=== PATIENT | male | born 1970 | race African-American/Black ===

== ENCOUNTER 2017-01-21 11:10 | Emergency (ER) | payer BC ==
[~2017-01-21] VITALS: Ht 188 cm; Wt 107.9 kg
[2017-01-21] MEDS ORDERED: LOSARTAN-HCTZ1 EACH PO (11:57)
[2017-01-21] MEDS ORDERED: HYZAAR 50-121 TABLET PO (11:59)
[2017-01-21 12:18] VITALS: BP 166/110
== END 2017-01-21 12:18 | disposition home or self-care (01) ==
LOC: EME 11:10
DX: I10 Essential (primary) hypertension (principal); Z72.0 Tobacco use
CPT/HCPCS: 99281; 99282

== ENCOUNTER 2017-02-22 14:33 | Emergency (ER) | payer SELFPAY ==
[~2017-02-22] VITALS: Ht 188 cm; Wt 109.9 kg
[~2017-02-22 14:33] MED LIST: HYZAAR 50-121 TABLET PO; LOSARTAN-HCTZ1 EACH PO
[2017-02-22] MEDS ORDERED: INDOCIN50 MG PO (18:19)
[2017-02-22] MEDS ORDERED: VALIUM5 MG PO (18:19)
[2017-02-22] MEDS ORDERED: NORCO 7.5/321 TABLET PO (18:19)
[2017-02-22 18:49] VITALS: BP 173/86
== END 2017-02-22 18:52 | disposition home or self-care (01) ==
LOC: EME 14:33
DX: S16.1XXA Strain of muscle, fascia and tendon at neck level, initial encounter (principal); S46.912A Strain of unspecified muscle, fascia and tendon at shoulder and upper arm level, left arm, initial encounter; X58.XXXA Exposure to other specified factors, initial encounter; Y99.0 Civilian activity done for income or pay
CPT/HCPCS: 99281; 99283

== ENCOUNTER 2017-06-22 15:05 | Inpatient (IN) | payer BC ==
[~2017-06-22] VITALS: Ht 188 cm; Wt 124.4 kg
[~2017-06-22 15:05] MED LIST changes: +INDOCIN50 MG PO; +NORCO 7.5/321 TABLET PO; +VALIUM5 MG PO
[2017-06-22 16:16] LABS: HEMATOCRIT 43.1 % (38.0-50.0); HEMOGLOBIN 15.4 G/DL (12.5-16.6); MCH 31.5 PG (29.0-34.0); MCHC 35.7 G/DL (30.0-36.0); MCV 88.1 FL (86-99); NRBC (%) 2.2 /100 WBC (0-0); RBC DIS.WIDTH-SD 41.6 % (39-53); RED BLOOD COUNT 4.89 M/uL (4.00-5.50); WHITE BLOOD COUNT 15.4 K/uL (4.1-10.2)
[2017-06-22 16:24] LABS: ALBUMIN 4.2 g/dL (3.2-4.8); CHLORIDE 102 mEq/L (99-109); POTASSIUM 3.8 mEq/L (3.7-5.4); SODIUM 137 mEq/L (136-147)
[2017-06-22 16:27] LABS: GLUCOSE 92 mg/dL (70-99)
[2017-06-22 16:28] LABS: TOTAL BILIRUBIN 1.3 mg/dL (0.0-1.0)
[2017-06-22 16:30] LABS: ALKALINE PHOSPHATASE 300 IU/L (3-129); CREATININE 1.8 mg/dL (0.6-1.3); GFR ESTIMATE (CALCULATED) 53 mL/min/ (58.99-99999)
[2017-06-22 16:31] LABS: UREA NITROGEN (BUN) 24 mg/dL (9-23)
[2017-06-22 16:32] LABS: AST (GOT) 109 IU/L (2-34)
[2017-06-22 16:33] LABS: ALT (GPT) 114 IU/L (3-49)
[2017-06-22 17:15] LABS: HEMATOLOGY COMMENT 1 SN; PLAT.SUFFICIENCY DECREASED
[2017-06-22 17:17] LABS: IMM.PLATELET FRACTION 12.9 (1-7); PLATELET COUNT 19 K/uL (156-360)
[2017-06-22 18:04] LABS: INTER. NORMALIZED RATIO 1.2
[2017-06-22 18:07] LABS: PTT 26.8 SEC (25-37)
[2017-06-22] MEDS ORDERED: DICLOFENAC SODI75 MG PO (19:29)
[2017-06-22] MEDS ORDERED: STRIBILD TABLE1 EACH PO (19:29)
[2017-06-22] MEDS ORDERED: ONE DAILY1 EAC3 PO (19:29)
[2017-06-22 21:00] LABS: HEMOGLOBIN 13.6 G/DL (12.5-16.6); INTER. NORMALIZED RATIO 1.3; MCH 31.5 PG (29.0-34.0); MCHC 35.8 G/DL (30.0-36.0); NRBC (%) 2.6 /100 WBC (0-0); RBC DIS.WIDTH-CV 12.9 % (11.8-14.6); RBC DIS.WIDTH-SD 41.1 % (39-53); RED BLOOD COUNT 4.32 M/uL (4.00-5.50); WHITE BLOOD COUNT 14.5 K/uL (4.1-10.2)
[2017-06-22 21:51] LABS: ABS NEUTROPHIL COUNT 10.6; ANISOCYTOSIS 2+; ATYPICAL LYMPHOCYTE 5.3 %; BAND NEUTROPHILS 18.4 % (0-8.0); EOSINOPHIL ABS CT 0.9; EOSINOPHILS 6.1 % (0-5.0); HEMATOLOGY COMMENT 1 SN; IMM.PLATELET FRACTION 14.2 (1-7); LYMPHOCYTES 4.4 % (15.0-45.0); METAMYELOCYTES 3.5 %; MICROCYTOSIS 1+; MONOCYTES 5.3 % (0-9.0); MYELOCYTES 2.6 %; NUCLEATED RBC'S 2.6; PLAT.SUFFICIENCY DECREASED; POLYCHROMASIA 1+; SEG.NEUTROPHILS 54.4 % (46.0-76.0)
[2017-06-22 21:52] LABS: PLATELET COUNT 17 K/uL (156-360)
[2017-06-23] VITALS (9 sets, daily range): BP systolic 134–167; BP diastolic 78–102
[2017-06-23 00:56] LABS: APPEARANCE SL.HAZY ((CLEAR)); BILIRUBIN NEGATIVE; BLOOD NEGATIVE; COLOR YELLOW ((YELLOW)); GLUCOSE (STRIP) NEGATIVE; KETONES 5; LEUKOCYTES NEGATIVE; NITRITE NEGATIVE; PROTEIN (STRIP) 30
[2017-06-23 01:18] LABS: BACTERIA RARE /HPF; EPITHELIAL CELLS RARE /HPF; MUCUS TRACE /LPF; RED BLOOD CELLS 0-5 /HPF (0-5); UCUL ADDED? NO; WHITE BLOOD CELLS 0-5 /HPF (0-5)
[2017-06-23 08:55] LABS: HEMATOCRIT 35.6 % (38.0-50.0); HEMOGLOBIN 12.2 G/DL (12.5-16.6); MCH 31.1 PG (29.0-34.0); MCHC 34.3 G/DL (30.0-36.0); MCV 90.8 FL (86-99); NRBC (%) 2.2 /100 WBC (0-0); RBC DIS.WIDTH-CV 13.3 % (11.8-14.6); RBC DIS.WIDTH-SD 44.2 % (39-53); RED BLOOD COUNT 3.92 M/uL (4.00-5.50); WHITE BLOOD COUNT 12.5 K/uL (4.1-10.2)
[2017-06-23 09:41] LABS: IMM.PLATELET FRACTION 11.6 (1-7); PLAT.SUFFICIENCY VERY DECREASED
[2017-06-23 09:44] LABS: PLATELET COUNT 14 K/uL (156-360)
[2017-06-23 11:36] LABS: CHLORIDE 104 MEQ/L (99-109); GLUCOSE 91 mg/dL (70-99); LACTATE DEHYDROGENASE 3124 IU/L (20-246); POTASSIUM 3.6 MEQ/L (3.7-5.4); SODIUM 138 MEQ/L (136-147); UREA NITROGEN (BUN) 18 mg/dL (9-23)
[2017-06-23 11:50] LABS: CREATININE 1.3 MG/DL (0.6-1.3); GFR ESTIMATE (CALCULATED) > 59 mL/min/ (58.99-99999)
[2017-06-23 13:39] LABS: D-DIMER LATEX POSITIVE
[2017-06-23 13:48] LABS: FIBRINOGEN 463 mg/dL (150-450)
[2017-06-23 13:49] LABS: TROP-I INTERPRETATION NEGATIVE; TROPONIN-I 0.02 ng/mL (0.0-0.30)
[2017-06-23 13:58] LABS: SCHISTOCYTES NONE SEEN
[2017-06-23 14:20] LABS: FOLIC ACID (FOLATE) 7.9 NG/ML (5.0-22.0)
[2017-06-23 19:10] LABS: TROP-I INTERPRETATION NEGATIVE; TROPONIN-I 0.01 ng/mL (0.0-0.30)
[2017-06-24] VITALS (10 sets, daily range): BP systolic 130–158; BP diastolic 75–97
[2017-06-24 01:20] LABS: TROP-I INTERPRETATION NEGATIVE; TROPONIN-I < 0.01 ng/mL (0.0-0.30)
[2017-06-24 08:42] LABS: HEMATOCRIT 35.8 % (38.0-50.0); HEMOGLOBIN 12.5 G/DL (12.5-16.6); MCHC 34.9 G/DL (30.0-36.0); MCV 88.8 FL (86-99); NRBC (%) 2.5 /100 WBC (0-0); RBC DIS.WIDTH-SD 41.9 % (39-53); RED BLOOD COUNT 4.03 M/uL (4.00-5.50)
[2017-06-24 09:07] LABS: CHLORIDE 98 MEQ/L (99-109); CREATININE 1.2 MG/DL (0.6-1.3); GFR ESTIMATE (CALCULATED) > 59 mL/min/ (58.99-99999); GLUCOSE 128 mg/dL (70-99); SODIUM 135 MEQ/L (136-147); UREA NITROGEN (BUN) 14 mg/dL (9-23)
[2017-06-24 09:18] LABS: IMM.PLATELET FRACTION 4.3 (1-7); PLAT.SUFFICIENCY DECREASED; PLATELET COUNT 38 K/uL (156-360)
[2017-06-24 12:46] LABS: HEPATITIS B SURFACE ANTIGEN Nonreactive
[2017-06-24 12:47] LABS: ANTI-HEPATITIS A VIRUS (IGM) Nonreactive; HEPATITIS C ANTIBODY Nonreactive
[2017-06-24 12:48] LABS: ANTI-HEPATITIS B CORE (IGM) Nonreactive
[2017-06-25 08:37] VITALS: BP 149/92
[2017-06-25 09:55] LABS: HEMATOCRIT 33.5 % (38.0-50.0); HEMOGLOBIN 11.8 G/DL (12.5-16.6); MCH 31.1 PG (29.0-34.0); MCHC 35.2 G/DL (30.0-36.0); MCV 88.2 FL (86-99); NRBC (%) 7.2 /100 WBC (0-0); RBC DIS.WIDTH-SD 41.6 % (39-53); WHITE BLOOD COUNT 10.4 K/uL (4.1-10.2)
[2017-06-25 10:21] LABS: IMM.PLATELET FRACTION 4.5 (1-7); PLAT.SUFFICIENCY DECREASED
[2017-06-25 10:30] LABS: PLATELET COUNT 38 K/uL (156-360)
[2017-06-25 11:09] LABS: CHLORIDE 104 MEQ/L (99-109); CREATININE 1.2 MG/DL (0.6-1.3); GFR ESTIMATE (CALCULATED) > 59 mL/min/ (58.99-99999); GLUCOSE 124 mg/dL (70-99); POTASSIUM 3.6 MEQ/L (3.7-5.4); SODIUM 140 MEQ/L (136-147)
[2017-06-25 11:10] LABS: UREA NITROGEN (BUN) 29 mg/dL (9-23)
[2017-06-25 16:01] VITALS: BP 149/93
[2017-06-25 23:49] VITALS: BP 144/97
[2017-06-26 04:07] LABS: LD-1/LD-2 RATIO 0.2 (())
[2017-06-26 06:50] VITALS: BP 149/102
[2017-06-26 07:07] LABS: HEMATOCRIT 31.5 % (38.0-50.0); MCH 31.5 PG (29.0-34.0); MCHC 34.9 G/DL (30.0-36.0); MCV 90.3 FL (86-99); NRBC (%) 8.9 /100 WBC (0-0); RBC DIS.WIDTH-CV 13.7 % (11.8-14.6); RBC DIS.WIDTH-SD 45.2 % (39-53); RED BLOOD COUNT 3.49 M/uL (4.00-5.50); WHITE BLOOD COUNT 10.5 K/uL (4.1-10.2)
[2017-06-26 07:27] LABS: IMM.PLATELET FRACTION 5.2 (1-7); PLAT.SUFFICIENCY VERY DECREASED
[2017-06-26 07:29] LABS: PLATELET COUNT 29 K/uL (156-360)
[2017-06-26 08:28] VITALS: BP 156/91
[2017-06-26 15:22] VITALS: BP 138/97
[2017-06-26 23:55] VITALS: BP 155/95
[2017-06-27 06:40] LABS: HEMATOCRIT 33.1 % (38.0-50.0); HEMOGLOBIN 11.6 G/DL (12.5-16.6); MCH 31.9 PG (29.0-34.0); MCV 90.9 FL (86-99); NRBC (%) 9.2 /100 WBC (0-0); RBC DIS.WIDTH-CV 13.6 % (11.8-14.6); RBC DIS.WIDTH-SD 45.3 % (39-53); RED BLOOD COUNT 3.64 M/uL (4.00-5.50); WHITE BLOOD COUNT 13.1 K/uL (4.1-10.2)
[2017-06-27 07:10] LABS: CHLORIDE 103 MEQ/L (99-109); CREATININE 1.1 MG/DL (0.6-1.3); GFR ESTIMATE (CALCULATED) > 59 mL/min/ (58.99-99999); POTASSIUM 4.1 MEQ/L (3.7-5.4); SODIUM 139 MEQ/L (136-147); UREA NITROGEN (BUN) 18 mg/dL (9-23)
[2017-06-27 07:15] LABS: GLUCOSE 56 mg/dL (70-99)
[2017-06-27 07:54] VITALS: BP 144/85
[2017-06-27 07:59] LABS: HEMATOLOGY COMMENT 1 SN; IMM.PLATELET FRACTION 9.1 (1-7); PLAT.SUFFICIENCY VERY DECREASED
[2017-06-27 08:03] LABS: PLATELET COUNT 25 K/uL (156-360)
[2017-06-27 13:06] LABS: ALBUMIN 3.3 G/DL (3.2-4.8); AST (GOT) 106 IU/L (2-34)
[2017-06-27 13:07] LABS: ALKALINE PHOSPHATASE 402 IU/L (3-129); ALT (GPT) 204 IU/L (3-49); TOTAL BILIRUBIN 3.2 MG/DL (0.0-1.0)
[2017-06-27 23:34] VITALS: BP 163/93
[2017-06-28] VITALS (7 sets, daily range): BP systolic 121–163; BP diastolic 72–92
[2017-06-28 06:45] LABS: HEMATOCRIT 35.3 % (38.0-50.0); HEMOGLOBIN 11.9 G/DL (12.5-16.6); MCHC 33.7 G/DL (30.0-36.0); MCV 91.9 FL (86-99); NRBC (%) 15.8 /100 WBC (0-0); RED BLOOD COUNT 3.84 M/uL (4.00-5.50); WHITE BLOOD COUNT 19.3 K/uL (4.1-10.2)
[2017-06-28 07:25] LABS: ALBUMIN 3.5 G/DL (3.2-4.8); ALKALINE PHOSPHATASE 407 IU/L (3-129); ALT (GPT) 172 IU/L (3-49); AST (GOT) 92 IU/L (2-34); CHLORIDE 99 MEQ/L (99-109); CREATININE 1.2 MG/DL (0.6-1.3); GFR ESTIMATE (CALCULATED) > 59 mL/min/ (58.99-99999); GLUCOSE 69 mg/dL (70-99); POTASSIUM 4.1 MEQ/L (3.7-5.4); SODIUM 141 MEQ/L (136-147); TOTAL PROTEIN 6.2 G/DL (6.4-8.3); UREA NITROGEN (BUN) 19 mg/dL (9-23)
[2017-06-28 07:44] LABS: IMM.PLATELET FRACTION 11.3 (1-7); PLAT.SUFFICIENCY VERY DECREASED; PLATELET COUNT 31 K/uL (156-360)
[2017-06-28 11:43] LABS: Flow Clinical Information R/O LYMPHOMA (()); Flow Number of Markers 22 (()); Flow Spec Viability 98 % (()); Flow Specimen Type PERIPHERAL BLOOD (())
[2017-06-28 13:40] LABS: CD4/CD8 Ratio 0.22 (0.86-5.00)
[2017-06-29 00:40] VITALS: BP 159/85
[2017-06-29 06:43] VITALS: BP 155/81
[2017-06-29 07:07] LABS: HEMATOCRIT 33.3 % (38.0-50.0); HEMOGLOBIN 11.4 G/DL (12.5-16.6); MCH 31.3 PG (29.0-34.0); MCHC 34.2 G/DL (30.0-36.0); MCV 91.5 FL (86-99); NRBC (%) 8.8 /100 WBC (0-0); PLATELET COUNT 67 K/uL (156-360); RBC DIS.WIDTH-CV 14.3 % (11.8-14.6); RBC DIS.WIDTH-SD 48.2 % (39-53); RED BLOOD COUNT 3.64 M/uL (4.00-5.50); WHITE BLOOD COUNT 24.1 K/uL (4.1-10.2)
[2017-06-29 07:44] LABS: ALBUMIN 3.4 G/DL (3.2-4.8); ALKALINE PHOSPHATASE 446 IU/L (3-129); ALT (GPT) 138 IU/L (3-49); AST (GOT) 118 IU/L (2-34); CHLORIDE 100 MEQ/L (99-109); CREATININE 1.4 MG/DL (0.6-1.3); GFR ESTIMATE (CALCULATED) > 59 mL/min/ (58.99-99999); POTASSIUM 4.3 MEQ/L (3.7-5.4); SODIUM 138 MEQ/L (136-147); TOTAL PROTEIN 6.1 G/DL (6.4-8.3); UREA NITROGEN (BUN) 25 mg/dL (9-23)
[2017-06-29 07:45] LABS: GLUCOSE 120 mg/dL (70-99); TOTAL BILIRUBIN 6.6 MG/DL (0.0-1.0)
[2017-06-29 07:48] LABS: ABS NEUTROPHIL COUNT 12.9; ANISOCYTOSIS 1+; ATYPICAL LYMPHOCYTE 6.8 %; BAND NEUTROPHILS 17.7 % (0-8.0); BASOPH.STIPPLING 1+; EOSINOPHIL ABS CT 1.9; EOSINOPHILS 7.7 % (0-5.0); METAMYELOCYTES 2.7 %; MONOCYTES 9.1 % (0-9.0); PLAT.SUFFICIENCY DECREASED; POLYCHROMASIA 1+
[2017-06-29 09:51] LABS: TREPONEMA ANTIBODY NEGATIVE (NEGATIVE)
[2017-06-29 18:55] VITALS: BP 160/96
[2017-06-29 23:15] VITALS: BP 160/96; BP 164/97
[2017-06-30] VITALS (9 sets, daily range): BP systolic 135–165; BP diastolic 79–98
[2017-06-30 01:41] LABS: Specimen Type Urine (())
[2017-06-30 07:07] LABS: HEMOGLOBIN 10.4 G/DL (12.5-16.6); MCH 31.5 PG (29.0-34.0); MCHC 34.7 G/DL (30.0-36.0); MCV 90.9 FL (86-99); NRBC (%) 4.8 /100 WBC (0-0); RBC DIS.WIDTH-CV 14.5 % (11.8-14.6); RBC DIS.WIDTH-SD 47.4 % (39-53); WHITE BLOOD COUNT 15.4 K/uL (4.1-10.2)
[2017-06-30 07:30] LABS: ABS NEUTROPHIL COUNT 11.1; ANISOCYTOSIS 1+; BAND NEUTROPHILS 6.7 % (0-8.0); EOSINOPHIL ABS CT 0.1; EOSINOPHILS 0.9 % (0-5.0); IMM.PLATELET FRACTION 5.5 (1-7); LYMPHOCYTES 13.3 % (15.0-45.0); METAMYELOCYTES 4.8 %; MONOCYTES 5.7 % (0-9.0); MYELOCYTES 1.9 %; NUCLEATED RBC'S 12.4; PLAT.SUFFICIENCY DECREASED; SMUDGE CELLS 27.6
[2017-06-30 07:41] LABS: PLATELET COUNT 46 K/uL (156-360); SEG.NEUTROPHILS 65.7 % (46.0-76.0)
[2017-06-30 08:24] LABS: ALBUMIN 3.1 G/DL (3.2-4.8); ALKALINE PHOSPHATASE 412 IU/L (3-129); ALT (GPT) 103 IU/L (3-49); AST (GOT) 112 IU/L (2-34); CHLORIDE 101 MEQ/L (99-109); CREATININE 1.5 MG/DL (0.6-1.3); DIRECT BILIRUBIN 3.3 mg/dL (0.0-0.3); GAMMA-GT 210 IU/L (4-73); GFR ESTIMATE (CALCULATED) > 59 mL/min/ (58.99-99999); GLUCOSE 138 mg/dL (70-99); SODIUM 138 MEQ/L (136-147); TOTAL PROTEIN 6.1 G/DL (6.4-8.3)
[2017-06-30 08:26] LABS: TOTAL BILIRUBIN 4.8 MG/DL (0.0-1.0); UREA NITROGEN (BUN) 42 mg/dL (9-23)
[2017-06-30 11:53] LABS: APPEARANCE CLEAR ((CLEAR)); BILIRUBIN NEGATIVE; BLOOD SMALL; COLOR AMBER ((YELLOW)); GLUCOSE (STRIP) NEGATIVE; KETONES NEGATIVE; LEUKOCYTES NEGATIVE; NITRITE NEGATIVE; PROTEIN (STRIP) NEGATIVE; SPECIFIC GRAVITY 1.024 (1.000-1.030)
[2017-06-30 12:14] LABS: BACTERIA NONE SEEN /HPF; EPITHELIAL CELLS RARE /HPF; HYALINE CASTS 0-5 /LPF; MUCUS TRACE /LPF; RED BLOOD CELLS 0-5 /HPF (0-5); UCUL ADDED? NO; WHITE BLOOD CELLS 0-5 /HPF (0-5)
[2017-06-30 12:29] LABS: UR CREATININE CONCENTRATION 73.9 MG/DL
[2017-06-30 14:23] LABS: HEMATOCRIT 30.1 % (38.0-50.0); HEMOGLOBIN 10.4 G/DL (12.5-16.6); MCHC 34.6 G/DL (30.0-36.0); MCV 89.6 FL (86-99); NRBC (%) 4.5 /100 WBC (0-0); RBC DIS.WIDTH-CV 14.6 % (11.8-14.6); RED BLOOD COUNT 3.36 M/uL (4.00-5.50); WHITE BLOOD COUNT 14.7 K/uL (4.1-10.2)
[2017-06-30 14:33] LABS: PLATELET COUNT 106 K/uL (156-360)
[2017-06-30 17:49] LABS: UR CREATININE CONCENTRATION 74.8 MG/DL
[2017-07-01 00:10] VITALS: BP 131/79
[2017-07-01 06:35] LABS: HEMATOCRIT 29.1 % (38.0-50.0); MCH 31.3 PG (29.0-34.0); MCHC 34.4 G/DL (30.0-36.0); MCV 90.9 FL (86-99); NRBC (%) 5.1 /100 WBC (0-0); PLATELET COUNT 89 K/uL (156-360); RBC DIS.WIDTH-CV 14.8 % (11.8-14.6); RBC DIS.WIDTH-SD 49.4 % (39-53); WHITE BLOOD COUNT 11.1 K/uL (4.1-10.2)
[2017-07-01 06:39] LABS: C4 COMPLEMENT 45 MG/DL (10-40)
[2017-07-01 06:52] LABS: ALBUMIN 3.2 G/DL (3.2-4.8); ALKALINE PHOSPHATASE 447 IU/L (3-129); ALT (GPT) 102 IU/L (3-49); AST (GOT) 102 IU/L (2-34); CHLORIDE 106 MEQ/L (99-109); CREATININE 1.3 MG/DL (0.6-1.3); GFR ESTIMATE (CALCULATED) > 59 mL/min/ (58.99-99999); GLUCOSE 125 mg/dL (70-99); PHOSPHORUS 5.2 mg/dL (2.5-4.9); POTASSIUM 3.9 MEQ/L (3.7-5.4); SODIUM 141 MEQ/L (136-147); UREA NITROGEN (BUN) 48 mg/dL (9-23)
[2017-07-01 06:53] LABS: TOTAL BILIRUBIN 3.3 MG/DL (0.0-1.0)
[2017-07-01 07:13] LABS: ABS NEUTROPHIL COUNT 8.2; BAND NEUTROPHILS 3.9 % (0-8.0); EOSINOPHIL ABS CT 0.1; LYMPHOCYTES 18.4 % (15.0-45.0); METAMYELOCYTES 1.9 %; MYELOCYTES 3.9 %; NUCLEATED RBC'S 15.5; PLAT.SUFFICIENCY DECREASED; SEG.NEUTROPHILS 69.9 % (46.0-76.0); SMUDGE CELLS 17.5
[2017-07-01 08:00] VITALS: BP 145/86
[2017-07-01 09:01] LABS: TREPONEMA ANTIBODY NEGATIVE (NEGATIVE)
[2017-07-01 13:06] VITALS: BP 159/89
[2017-07-01 15:34] VITALS: BP 136/83
[2017-07-02 00:01] VITALS: BP 135/81
[2017-07-02 07:18] LABS: HEMATOCRIT 28.6 % (38.0-50.0); HEMOGLOBIN 9.7 G/DL (12.5-16.6); MCHC 33.9 G/DL (30.0-36.0); MCV 91.4 FL (86-99); NRBC (%) 6.2 /100 WBC (0-0); RBC DIS.WIDTH-CV 15.2 % (11.8-14.6); RED BLOOD COUNT 3.13 M/uL (4.00-5.50); WHITE BLOOD COUNT 9.3 K/uL (4.1-10.2)
[2017-07-02 07:27] LABS: ALBUMIN 3.2 G/DL (3.2-4.8); ALKALINE PHOSPHATASE 472 IU/L (3-129); ALT (GPT) 102 IU/L (3-49); AST (GOT) 96 IU/L (2-34); CHLORIDE 105 MEQ/L (99-109); CREATININE 1.1 MG/DL (0.6-1.3); GFR ESTIMATE (CALCULATED) > 59 mL/min/ (58.99-99999); GLUCOSE 114 mg/dL (70-99); POTASSIUM 4.1 MEQ/L (3.7-5.4); SODIUM 141 MEQ/L (136-147); TOTAL BILIRUBIN 3.1 MG/DL (0.0-1.0); TOTAL PROTEIN 5.9 G/DL (6.4-8.3); UREA NITROGEN (BUN) 40 mg/dL (9-23)
[2017-07-02 08:08] LABS: ABS NEUTROPHIL COUNT 6.2; BAND NEUTROPHILS 12.3 % (0-8.0); BASOPHILS 0.9 %; EOSINOPHIL ABS CT 0.1; METAMYELOCYTES 4.7 %; MONOCYTES 6.6 % (0-9.0); MYELOCYTES 2.8 %; NUCLEATED RBC'S 13.2; PLAT.SUFFICIENCY DECREASED; SEG.NEUTROPHILS 54.7 % (46.0-76.0); SMUDGE CELLS 21.7
[2017-07-02 08:10] LABS: PLATELET COUNT 54 K/uL (156-360)
[2017-07-02 08:28] VITALS: BP 138/81
[2017-07-02 11:44] LABS: Flow Number of Markers 22 (()); Flow Spec Viability 90 % (()); Flow Specimen Type LYMPH NODE (())
[2017-07-02 16:58] VITALS: BP 125/81
[2017-07-03 00:52] VITALS: BP 118/82
[2017-07-03 08:54] VITALS: BP 133/75
[2017-07-03 09:21] LABS: HEMATOCRIT 29.2 % (38.0-50.0); HEMOGLOBIN 9.8 G/DL (12.5-16.6); MCH 30.8 PG (29.0-34.0); MCHC 33.6 G/DL (30.0-36.0); MCV 91.8 FL (86-99); NRBC (%) 9.8 /100 WBC (0-0); RBC DIS.WIDTH-CV 15.3 % (11.8-14.6); RBC DIS.WIDTH-SD 51.4 % (39-53); RED BLOOD COUNT 3.18 M/uL (4.00-5.50); WHITE BLOOD COUNT 7.5 K/uL (4.1-10.2)
[2017-07-03 09:39] LABS: CHLORIDE 104 MEQ/L (99-109); POTASSIUM 4.4 MEQ/L (3.7-5.4); SODIUM 139 MEQ/L (136-147)
[2017-07-03 09:45] LABS: GFR ESTIMATE (CALCULATED) > 59 mL/min/ (58.99-99999); GLUCOSE 118 mg/dL (70-99); UREA NITROGEN (BUN) 35 mg/dL (9-23)
[2017-07-03 09:53] LABS: IMM.PLATELET FRACTION 5.7 (1-7); PLAT.SUFFICIENCY DECREASED; PLATELET COUNT 41 K/uL (156-360)
[2017-07-03 14:01] LABS: ALBUMIN 3.4 G/DL (3.2-4.8); ALKALINE PHOSPHATASE 470 IU/L (3-129); ALT (GPT) 124 IU/L (3-49); AST (GOT) 100 IU/L (2-34); DIRECT BILIRUBIN 1.9 mg/dL (0.0-0.3); TOTAL BILIRUBIN 3.4 MG/DL (0.0-1.0); TOTAL PROTEIN 6.1 G/DL (6.4-8.3)
[2017-07-03 17:01] VITALS: BP 130/60
[2017-07-03 21:15] VITALS: BP 139/77
[2017-07-04 08:42] VITALS: BP 149/76
[2017-07-04 10:08] LABS: HEMATOCRIT 28.1 % (38.0-50.0); HEMOGLOBIN 10.2 G/DL (12.5-16.6); MCH 33.3 PG (29.0-34.0); MCHC 36.3 G/DL (30.0-36.0); MCV 91.8 FL (86-99); NRBC (%) 12.5 /100 WBC (0-0); RBC DIS.WIDTH-CV 15.4 % (11.8-14.6); RBC DIS.WIDTH-SD 52.1 % (39-53); RED BLOOD COUNT 3.06 M/uL (4.00-5.50); WHITE BLOOD COUNT 6.3 K/uL (4.1-10.2)
[2017-07-04 10:27] LABS: ALBUMIN 3.2 G/DL (3.2-4.8); CHLORIDE 102 MEQ/L (99-109); POTASSIUM 4.2 MEQ/L (3.7-5.4); SODIUM 138 MEQ/L (136-147); TOTAL BILIRUBIN 3.9 MG/DL (0.0-1.0)
[2017-07-04 10:33] LABS: ALKALINE PHOSPHATASE 483 IU/L (3-129); ALT (GPT) 121 IU/L (3-49); AST (GOT) 82 IU/L (2-34); CREATININE 1.1 MG/DL (0.6-1.3); GFR ESTIMATE (CALCULATED) > 59 mL/min/ (58.99-99999); GLUCOSE 106 mg/dL (70-99); TOTAL PROTEIN 5.5 G/DL (6.4-8.3); UREA NITROGEN (BUN) 39 mg/dL (9-23)
[2017-07-04 10:46] LABS: ABS NEUTROPHIL COUNT 4.5; ANISOCYTOSIS 1+; ATYPICAL LYMPHOCYTE 7.1 %; BAND NEUTROPHILS 4.8 % (0-8.0); EOSINOPHIL ABS CT 0.1; EOSINOPHILS 1.2 % (0-5.0); IMM.PLATELET FRACTION 6.5 (1-7); LYMPHOCYTES 9.5 % (15.0-45.0); MACROCYTES 1+; METAMYELOCYTES 3.6 %; MONOCYTES 5.9 % (0-9.0); MYELOCYTES 1.2 %; NUCLEATED RBC'S 33.3; PLAT.SUFFICIENCY VERY DECREASED; PLATELET COUNT 33 K/uL (156-360); POLYCHROMASIA 1+; SEG.NEUTROPHILS 66.7 % (46.0-76.0)
[2017-07-04 15:13] VITALS: BP 158/91
[2017-07-04 23:32] VITALS: BP 135/73
[2017-07-05] VITALS (9 sets, daily range): BP systolic 137–163; BP diastolic 73–93
[2017-07-05 04:50] LABS: HEMATOCRIT 28.4 % (38.0-50.0); HEMOGLOBIN 10.2 G/DL (12.5-16.6); MCH 32.3 PG (29.0-34.0); MCHC 35.9 G/DL (30.0-36.0); MCV 89.9 FL (86-99); RBC DIS.WIDTH-CV 15.4 % (11.8-14.6); RBC DIS.WIDTH-SD 50.5 % (39-53); RED BLOOD COUNT 3.16 M/uL (4.00-5.50); WHITE BLOOD COUNT 6.7 K/uL (4.1-10.2)
[2017-07-05 04:55] LABS: CARBON DIOXIDE (BICARBONATE) 13.7 MEQ/L (20-31)
[2017-07-05 05:03] LABS: ALBUMIN 3.2 g/dL (3.2-4.8); CHLORIDE 105 mEq/L (99-109); POTASSIUM 4.6 mEq/L (3.7-5.4); SODIUM 138 mEq/L (136-147)
[2017-07-05 05:05] LABS: GLUCOSE 95 mg/dL (70-99)
[2017-07-05 05:06] LABS: TOTAL PROTEIN 6.1 g/dL (6.4-8.3)
[2017-07-05 05:07] LABS: TOTAL BILIRUBIN 4.3 mg/dL (0.0-1.0)
[2017-07-05 05:09] LABS: ALKALINE PHOSPHATASE 513 IU/L (3-129); GFR ESTIMATE (CALCULATED) > 59 mL/min/ (58.99-99999); PHOSPHORUS 3.9 mg/dL (2.5-4.9)
[2017-07-05 05:10] LABS: UREA NITROGEN (BUN) 35 mg/dL (9-23)
[2017-07-05 05:11] LABS: AST (GOT) 89 IU/L (2-34)
[2017-07-05 05:12] LABS: ALT (GPT) 139 IU/L (3-49)
[2017-07-05 06:57] LABS: ANISOCYTOSIS 1+; BAND NEUTROPHILS 11.5 % (0-8.0); EOSINOPHIL ABS CT 0.1; LYMPHOCYTES 11.5 % (15.0-45.0); METAMYELOCYTES 5.2 %; MONOCYTES 6.3 % (0-9.0); MYELOCYTES 15.6 %; NUCLEATED RBC'S 21.9; PLAT.SUFFICIENCY DECREASED; PLATELET COUNT 26 K/uL (156-360); SEG.NEUTROPHILS 48.9 % (46.0-76.0); SMUDGE CELLS 17.7
[2017-07-05 11:03] LABS: BASE EXCESS -8.8 mEq/L (-3 to +3); BICARBONATE 13.9 mEq/L (22-26); CARBOXY HGB 0.9 % (0-5); METHEMOGLOBIN 0.9 % (0-1.5); PCO2 22 mm Hg (35-45); PO2 69 mm Hg (80-100); pH 7.41 (7.35-7.45)
[2017-07-05 11:04] LABS: COMMENTS - BLOOD GASES A+C+; DEVICE HFNC; O2 FLOW 10 L/MIN; SITE RR; TOTAL RESP RATE 28 resp/min
[2017-07-06 03:52] VITALS: BP 144/83
[2017-07-06 05:01] LABS: CARBON DIOXIDE (BICARBONATE) 12.6 MEQ/L (20-31)
[2017-07-06 05:58] LABS: HEMATOCRIT 26.7 % (38.0-50.0); HEMOGLOBIN 8.9 G/DL (12.5-16.6); MCH 30.4 PG (29.0-34.0); MCHC 33.3 G/DL (30.0-36.0); MCV 91.1 FL (86-99); NRBC (%) 9.2 /100 WBC (0-0); RBC DIS.WIDTH-CV 15.8 % (11.8-14.6); RBC DIS.WIDTH-SD 53.3 % (39-53); RED BLOOD COUNT 2.93 M/uL (4.00-5.50); WHITE BLOOD COUNT 6.8 K/uL (4.1-10.2)
[2017-07-06 06:44] LABS: CHLORIDE 102 MEQ/L (99-109); CREATININE 1.1 MG/DL (0.6-1.3); GFR ESTIMATE (CALCULATED) > 59 mL/min/ (58.99-99999); GLUCOSE 78 mg/dL (70-99); POTASSIUM 4.6 MEQ/L (3.7-5.4); SODIUM 137 MEQ/L (136-147); UREA NITROGEN (BUN) 38 mg/dL (9-23)
[2017-07-06 06:47] LABS: ABS NEUTROPHIL COUNT 4.8; ANISOCYTOSIS 2+; EOSINOPHIL ABS CT 0.1; IMM.PLATELET FRACTION 5.5 (1-7); PLAT.SUFFICIENCY VERY DECREASED; POIKILOCYTOSIS 1+; POLYCHROMASIA 1+; TEAR DROP CELLS 2+
[2017-07-06 06:51] LABS: PLATELET COUNT 27 K/uL (156-360)
[2017-07-06 07:20] VITALS: BP 141/92
[2017-07-06 08:28] LABS: BICARBONATE 11.9 mEq/L (22-26); CARBOXY HGB 0.9 % (0-5); METHEMOGLOBIN 1.2 % (0-1.5); PCO2 21 mm Hg (35-45); PO2 54 mm Hg (80-100); SITE LR; pH 7.36 (7.35-7.45)
[2017-07-06 08:29] LABS: COMMENTS - BLOOD GASES A+C+; DEVICE HFNC; FI02 100 %; O2 FLOW 15 L/MIN; TOTAL RESP RATE 26 resp/min
[2017-07-06 12:20] VITALS: BP 122/69
[2017-07-06 14:52] LABS: CARBON DIOXIDE (BICARBONATE) 12.2 MEQ/L (20-31)
[2017-07-06 15:07] LABS: CHLORIDE 101 MEQ/L (99-109); CREATININE 1.2 MG/DL (0.6-1.3); GFR ESTIMATE (CALCULATED) > 59 mL/min/ (58.99-99999); GLUCOSE 79 mg/dL (70-99); POTASSIUM 5.2 MEQ/L (3.7-5.4); SODIUM 136 MEQ/L (136-147); UREA NITROGEN (BUN) 42 mg/dL (9-23)
[2017-07-06 15:13] VITALS: BP 127/61
[2017-07-06 19:20] VITALS: BP 136/89
[2017-07-07] VITALS (26 sets, daily range): BP systolic 104–180; BP diastolic 48–103
[2017-07-07 06:17] LABS: ALBUMIN 2.8 G/DL (3.2-4.8); ALT (GPT) 84 IU/L (3-49); AST (GOT) 71 IU/L (2-34); CHLORIDE 101 MEQ/L (99-109); CREATININE 1.5 MG/DL (0.6-1.3); GFR ESTIMATE (CALCULATED) > 59 mL/min/ (58.99-99999); PHOSPHORUS 4.2 mg/dL (2.5-4.9); POTASSIUM 4.9 MEQ/L (3.7-5.4); SODIUM 134 MEQ/L (136-147); TOTAL BILIRUBIN 4.3 MG/DL (0.0-1.0); TOTAL PROTEIN 5.1 G/DL (6.4-8.3); UREA NITROGEN (BUN) 45 mg/dL (9-23)
[2017-07-07 06:20] LABS: CARBON DIOXIDE (BICARBONATE) < 10.0 MEQ/L (20-31); GLUCOSE 105 mg/dL (70-99)
[2017-07-07 06:21] LABS: ALKALINE PHOSPHATASE 357 IU/L (3-129)
[2017-07-07 06:39] LABS: HEMATOCRIT 25.4 % (38.0-50.0); HEMOGLOBIN 8.5 G/DL (12.5-16.6); MCHC 33.5 G/DL (30.0-36.0); MCV 92.7 FL (86-99); NRBC (%) 7.2 /100 WBC (0-0); RBC DIS.WIDTH-CV 16.5 % (11.8-14.6); RBC DIS.WIDTH-SD 56.3 % (39-53); RED BLOOD COUNT 2.74 M/uL (4.00-5.50); WHITE BLOOD COUNT 9.3 K/uL (4.1-10.2)
[2017-07-07 07:10] LABS: ABS NEUTROPHIL COUNT 6.3; ANISOCYTOSIS 1+; BAND NEUTROPHILS 7.5 % (0-8.0); BASOPHILS 0.9 %; EOSINOPHIL ABS CT 0; LYMPHOCYTES 13.1 % (15.0-45.0); METAMYELOCYTES 7.5 %; MONOCYTES 1.9 % (0-9.0); MYELOCYTES 4.7 %; NUCLEATED RBC'S 18.7; OTHER 3.7; PLAT.SUFFICIENCY DECREASED; PLATELET COUNT 20 K/uL (156-360); SEG.NEUTROPHILS 60.7 % (46.0-76.0); SMUDGE CELLS 20.6
[2017-07-07 11:46] LABS: CARBOXY HGB 0.9 % (0-5); METHEMOGLOBIN 2.6 % (0-1.5); PCO2 < 19 mm Hg (35-45); PO2 86 mm Hg (80-100)
[2017-07-07 11:47] LABS: COMMENTS - BLOOD GASES A+C+; DEVICE HHFNC; O2 FLOW 30 L/MIN; SITE LR
[2017-07-07 11:48] LABS: FI02 100 %; TOTAL RESP RATE 33 resp/min
[2017-07-07 13:34] LABS: ALKALINE PHOSPHATASE 379 IU/L (3-129); ALT (GPT) 87 IU/L (3-49); AST (GOT) 94 IU/L (2-34); CHLORIDE 100 MEQ/L (99-109); CREATININE 1.8 MG/DL (0.6-1.3); GFR ESTIMATE (CALCULATED) 53 mL/min/ (58.99-99999); GLUCOSE 98 mg/dL (70-99); SODIUM 139 MEQ/L (136-147); TOTAL BILIRUBIN 4.4 MG/DL (0.0-1.0); TOTAL PROTEIN 5.5 G/DL (6.4-8.3); UREA NITROGEN (BUN) 61 mg/dL (9-23); URIC ACID 17.2 mg/dL (3.1-9.2)
[2017-07-07 13:44] LABS: LACTATE DEHYDROGENASE 3191 IU/L (20-246)
[2017-07-07 13:45] LABS: CARBON DIOXIDE (BICARBONATE) < 10.0 MEQ/L (20-31); HIGH-SENS C-REACTIVE PROTEIN > 8.00 MG/DL (0.02-0.20); PHOSPHORUS 6.8 mg/dL (2.5-4.9); POTASSIUM 6.2 MEQ/L (3.7-5.4)
[2017-07-07 15:13] LABS: BASE EXCESS -14.4 mEq/L (-3 to +3); CARBOXY HGB 0 % (0-5); METHEMOGLOBIN 2.1 % (0-1.5)
[2017-07-07 15:14] LABS: BICARBONATE 15.6 mEq/L (22-26); COMMENTS - BLOOD GASES C+; DEVICE VENT; FI02 100 %; MECHANICAL RATE 30 resp/min; MODE ACVC; PCO2 59 mm Hg (35-45); PEEP 10 CM/H20; PO2 322 mm Hg (80-100); SITE LR; TIDAL VOLUME 500 ML; TOTAL RESP RATE 30 resp/min; pH 7.03 (7.35-7.45)
[2017-07-07 15:36] LABS: ALBUMIN 2.7 G/DL (3.2-4.8); ALKALINE PHOSPHATASE 363 IU/L (3-129); ALT (GPT) 75 IU/L (3-49); AST (GOT) 81 IU/L (2-34); CHLORIDE 100 MEQ/L (99-109); CREATININE 1.9 MG/DL (0.6-1.3); GFR ESTIMATE (CALCULATED) 49 mL/min/ (58.99-99999); POTASSIUM 5.2 MEQ/L (3.7-5.4); SODIUM 137 MEQ/L (136-147); TOTAL BILIRUBIN 4.2 MG/DL (0.0-1.0); TOTAL PROTEIN 5.4 G/DL (6.4-8.3); UREA NITROGEN (BUN) 60 mg/dL (9-23); URIC ACID 17.1 mg/dL (3.1-9.2)
[2017-07-07 15:38] LABS: VANCOMYCIN, TROUGH 26.6 MCG/ML (10-20)
[2017-07-07 15:39] LABS: GLUCOSE 191 mg/dL (70-99)
[2017-07-07 15:50] LABS: HEMATOCRIT 23.7 % (38.0-50.0); HEMOGLOBIN 7.8 G/DL (12.5-16.6); MCH 31.3 PG (29.0-34.0); MCHC 32.9 G/DL (30.0-36.0); MCV 95.2 FL (86-99); NRBC (%) 5.6 /100 WBC (0-0); RBC DIS.WIDTH-CV 17.1 % (11.8-14.6); RBC DIS.WIDTH-SD 58.9 % (39-53); RED BLOOD COUNT 2.49 M/uL (4.00-5.50); WHITE BLOOD COUNT 10.8 K/uL (4.1-10.2)
[2017-07-07 16:15] LABS: ABS NEUTROPHIL COUNT 6.4; ANISOCYTOSIS 1+; BAND NEUTROPHILS 9.3 % (0-8.0); EOSINOPHIL ABS CT 0; HEMATOLOGY COMMENT 1 OTHERS=IMMATURE MONONUCLEAR; IMM.PLATELET FRACTION 6.1 (1-7); LYMPHOCYTES 20.6 % (15.0-45.0); MACROCYTES 1+; METAMYELOCYTES 4.1 %; MYELOCYTES 8.3 %; NUCLEATED RBC'S 15.5; OTHER 8.2; PLAT.SUFFICIENCY VERY DECREASED; SEG.NEUTROPHILS 49.5 % (46.0-76.0); SMUDGE CELLS 44.3
[2017-07-07 16:16] LABS: PLATELET COUNT 26 K/uL (156-360)
[2017-07-07 17:48] LABS: APPEARANCE SL.HAZY ((CLEAR)); BILIRUBIN NEGATIVE; BLOOD MODERATE; COLOR AMBER ((YELLOW)); GLUCOSE (STRIP) NEGATIVE; KETONES NEGATIVE; LEUKOCYTES NEGATIVE; NITRITE NEGATIVE; PROTEIN (STRIP) 100; SPECIFIC GRAVITY 1.018 (1.000-1.030)
[2017-07-07 17:53] LABS: BACTERIA RARE /HPF; EPITHELIAL CELLS RARE /HPF; MUCUS TRACE /LPF; RED BLOOD CELLS 0-5 /HPF (0-5); UCUL ADDED? NO; WHITE BLOOD CELLS 0-5 /HPF (0-5)
[2017-07-08] VITALS (33 sets, daily range): BP systolic 96–142; BP diastolic 42–70
[2017-07-08 00:49] LABS: ALBUMIN 2.5 g/dL (3.2-4.8); CHLORIDE 98 mEq/L (99-109); POTASSIUM 4.7 mEq/L (3.7-5.4); SODIUM 135 mEq/L (136-147)
[2017-07-08 00:52] LABS: GLUCOSE 125 mg/dL (70-99)
[2017-07-08 00:55] LABS: CREATININE 1.5 mg/dL (0.6-1.3); GFR ESTIMATE (CALCULATED) > 59 mL/min/ (58.99-99999)
[2017-07-08 00:57] LABS: AST (GOT) 124 IU/L (2-34); HEMATOCRIT 18.5 % (38.0-50.0); MCH 32.7 PG (29.0-34.0); MCHC 35.7 G/DL (30.0-36.0); MCV 91.6 FL (86-99); NRBC (%) 8.6 /100 WBC (0-0); RBC DIS.WIDTH-CV 16.9 % (11.8-14.6); RBC DIS.WIDTH-SD 56.4 % (39-53); RED BLOOD COUNT 2.02 M/uL (4.00-5.50); UREA NITROGEN (BUN) 37 mg/dL (9-23); WHITE BLOOD COUNT 4.7 K/uL (4.1-10.2)
[2017-07-08 00:58] LABS: ALT (GPT) 78 IU/L (3-49); URIC ACID 8.3 mg/dL (3.1-9.2)
[2017-07-08 00:59] LABS: ALKALINE PHOSPHATASE 316 IU/L (3-129); TOTAL BILIRUBIN 3.2 mg/dL (0.0-1.0); TOTAL PROTEIN 4.9 g/dL (6.4-8.3)
[2017-07-08 02:11] LABS: ABS NEUTROPHIL COUNT 3.6; ANISOCYTOSIS 2+; BAND NEUTROPHILS 6.7 % (0-8.0); BASOPH.STIPPLING 1+; EOSINOPHIL ABS CT 0; HELMET CELLS 1+; HEMOGLOBIN 6.6 G/DL (12.5-16.6); HOWELL JOLLY BODIES 1+; HYPOCHROMASIA 3+; IMM.PLATELET FRACTION 3.3 (1-7); MACROCYTES 2+; METAMYELOCYTES 2.2 %; MICROCYTOSIS 1+; MONOCYTES 2.2 % (0-9.0); MYELOCYTES 4.5 %; NUCLEATED RBC'S 17.8; OTHER 1.1; OVALOCYTES 1+; PLAT.SUFFICIENCY VERY DECREASED; PLATELET COUNT 35 K/uL (156-360); POIKILOCYTOSIS 2+; POLYCHROMASIA 1+; SMUDGE CELLS 27.8; TARGET CELLS 1+; TEAR DROP CELLS 2+
[2017-07-08 02:24] LABS: LACTATE DEHYDROGENASE 3273 IU/L (20-246)
[2017-07-08 08:54] LABS: HEMATOCRIT 23.1 % (38.0-50.0); HEMOGLOBIN 8.3 G/DL (12.5-16.6); MCH 32.8 PG (29.0-34.0); MCHC 35.9 G/DL (30.0-36.0); MCV 91.3 FL (86-99); NRBC (%) 9.2 /100 WBC (0-0); RBC DIS.WIDTH-CV 16.2 % (11.8-14.6); RBC DIS.WIDTH-SD 53.6 % (39-53)
[2017-07-08 09:30] LABS: BICARBONATE 23.7 mEq/L (22-26); CARBOXY HGB 1.7 % (0-5); METHEMOGLOBIN 3.1 % (0-1.5); PCO2 44 mm Hg (35-45); PO2 44 mm Hg (80-100); pH 7.34 (7.35-7.45)
[2017-07-08 09:31] LABS: DEVICE VENT; FI02 40 %; MECHANICAL RATE 35 resp/min; MODE AC; PEEP 10 CM/H20; SITE LA; TIDAL VOLUME 600 ML; TOTAL RESP RATE 37 resp/min
[2017-07-08 09:32] LABS: COMMENTS - BLOOD GASES A+C+
[2017-07-08 09:35] LABS: CARBON DIOXIDE (BICARBONATE) 25.1 MEQ/L (20-31)
[2017-07-08 10:24] LABS: ABS NEUTROPHIL COUNT 4.3; ANISOCYTOSIS 1+; EOSINOPHIL ABS CT 0; PLAT.SUFFICIENCY VERY DECREASED; PLATELET COUNT 30 K/uL (156-360)
[2017-07-08 10:45] LABS: ALBUMIN 2.5 G/DL (3.2-4.8); ALKALINE PHOSPHATASE 305 IU/L (3-129); ALT (GPT) 111 IU/L (3-49); AST (GOT) 231 IU/L (2-34); CHLORIDE 95 MEQ/L (99-109); CREATININE 1.9 MG/DL (0.6-1.3); GFR ESTIMATE (CALCULATED) 49 mL/min/ (58.99-99999); GLUCOSE 108 mg/dL (70-99); PHOSPHORUS 5.1 mg/dL (2.5-4.9); POTASSIUM 4.7 MEQ/L (3.7-5.4); SODIUM 133 MEQ/L (136-147); TOTAL BILIRUBIN 3.9 MG/DL (0.0-1.0); TOTAL PROTEIN 4.4 G/DL (6.4-8.3); UREA NITROGEN (BUN) 45 mg/dL (9-23); VANCOMYCIN, TROUGH 16.1 MCG/ML (10-20)
[2017-07-08 10:50] LABS: RED BLOOD COUNT 2.53 M/uL (4.00-5.50)
[2017-07-08 11:10] LABS: LACTATE DEHYDROGENASE 4092 IU/L (20-246); URIC ACID 6.2 mg/dL (3.1-9.2)
[2017-07-08 11:52] LABS: ANTI-HEPATITIS B CORE (TOTAL) Nonreactive
[2017-07-08 12:19] LABS: HEMATOCRIT 20.8 % (38.0-50.0); HEMOGLOBIN 7.8 G/DL (12.5-16.6); MCH 33.5 PG (29.0-34.0); MCHC 37.5 G/DL (30.0-36.0); MCV 89.3 FL (86-99); RBC DIS.WIDTH-CV 16.2 % (11.8-14.6); RBC DIS.WIDTH-SD 52.8 % (39-53); RED BLOOD COUNT 2.33 M/uL (4.00-5.50); WHITE BLOOD COUNT 4.9 K/uL (4.1-10.2)
[2017-07-08 12:22] LABS: ALBUMIN 2.4 G/DL (3.2-4.8); ALKALINE PHOSPHATASE 308 IU/L (3-129); ALT (GPT) 108 IU/L (3-49); AST (GOT) 254 IU/L (2-34); CHLORIDE 97 MEQ/L (99-109); CREATININE 1.2 MG/DL (0.6-1.3); GFR ESTIMATE (CALCULATED) > 59 mL/min/ (58.99-99999); GLUCOSE 98 mg/dL (70-99); POTASSIUM 4.3 MEQ/L (3.7-5.4); SODIUM 135 MEQ/L (136-147); TOTAL PROTEIN 4.3 G/DL (6.4-8.3); UREA NITROGEN (BUN) 24 mg/dL (9-23)
[2017-07-08 12:34] LABS: PHOSPHORUS 3.1 mg/dL (2.5-4.9); URIC ACID 3.3 mg/dL (3.1-9.2)
[2017-07-08 13:14] LABS: PLATELET COUNT 26 K/uL (156-360)
[2017-07-08 13:17] LABS: IMM.PLATELET FRACTION 3.3 (1-7)
[2017-07-08 18:13] LABS: HEMATOCRIT 21.5 % (38.0-50.0); HEMOGLOBIN 7.8 G/DL (12.5-16.6); MCH 33.2 PG (29.0-34.0); MCHC 36.3 G/DL (30.0-36.0); MCV 91.5 FL (86-99); RBC DIS.WIDTH-SD 56.7 % (39-53); RED BLOOD COUNT 2.35 M/uL (4.00-5.50); WHITE BLOOD COUNT 5.2 K/uL (4.1-10.2)
[2017-07-08 18:34] LABS: ALBUMIN 2.4 G/DL (3.2-4.8); ALKALINE PHOSPHATASE 311 IU/L (3-129); ALT (GPT) 124 IU/L (3-49); AST (GOT) 279 IU/L (2-34); CHLORIDE 96 MEQ/L (99-109); GFR ESTIMATE (CALCULATED) 53 mL/min/ (58.99-99999); GLUCOSE 89 mg/dL (70-99); POTASSIUM 4.8 MEQ/L (3.7-5.4); SODIUM 132 MEQ/L (136-147); TOTAL BILIRUBIN 4.5 MG/DL (0.0-1.0); TOTAL PROTEIN 4.4 G/DL (6.4-8.3); UREA NITROGEN (BUN) 34 mg/dL (9-23)
[2017-07-08 18:36] LABS: CREATININE 1.8 MG/DL (0.6-1.3)
[2017-07-08 18:51] LABS: ABS NEUTROPHIL COUNT 3.3; ANISOCYTOSIS 1+; EOSINOPHIL ABS CT 0.1; IMM.PLATELET FRACTION 3.9 (1-7); MACROCYTES 1+; PLAT.SUFFICIENCY VERY DECREASED; PLATELET COUNT 21 K/uL (156-360)
[2017-07-08 19:00] LABS: URIC ACID 3.9 mg/dL (3.1-9.2)
[2017-07-08 19:04] LABS: PHOSPHORUS 4.4 mg/dL (2.5-4.9)
[2017-07-09] VITALS (18 sets, daily range): BP systolic 94–130; BP diastolic 40–58
[2017-07-09 00:51] LABS: ALBUMIN 2.5 g/dL (3.2-4.8); CHLORIDE 96 mEq/L (99-109); POTASSIUM 5.4 mEq/L (3.7-5.4); SODIUM 131 mEq/L (136-147)
[2017-07-09 00:53] LABS: GLUCOSE 81 mg/dL (70-99)
[2017-07-09 00:55] LABS: TOTAL BILIRUBIN 3.6 mg/dL (0.0-1.0)
[2017-07-09 00:56] LABS: HEMATOCRIT 21.2 % (38.0-50.0); HEMOGLOBIN 8.3 G/DL (12.5-16.6); MCH 35.6 PG (29.0-34.0); MCHC 39.2 G/DL (30.0-36.0); RBC DIS.WIDTH-SD 55.8 % (39-53); RED BLOOD COUNT 2.33 M/uL (4.00-5.50); WHITE BLOOD COUNT 5.7 K/uL (4.1-10.2)
[2017-07-09 00:57] LABS: ALKALINE PHOSPHATASE 367 IU/L (3-129); CREATININE 2.5 mg/dL (0.6-1.3); GFR ESTIMATE (CALCULATED) 36 mL/min/ (58.99-99999); TOTAL PROTEIN 5.8 g/dL (6.4-8.3)
[2017-07-09 00:58] LABS: UREA NITROGEN (BUN) 39 mg/dL (9-23)
[2017-07-09 00:59] LABS: PHOSPHORUS 4.7 mg/dL (2.5-4.9)
[2017-07-09 01:11] LABS: ALT (GPT) 158 IU/L (3-49); AST (GOT) 320 IU/L (2-34)
[2017-07-09 01:12] LABS: URIC ACID 4.7 mg/dL (3.1-9.2)
[2017-07-09 02:11] LABS: IMM.PLATELET FRACTION 4.1 (1-7)
[2017-07-09 02:49] LABS: PLATELET COUNT 22 K/uL (156-360)
[2017-07-09 02:55] LABS: ABS NEUTROPHIL COUNT 3.7; ANISOCYTOSIS 2+; EOSINOPHIL ABS CT 0.1; HYPOCHROMASIA 3+; MACROCYTES 2+; PLAT.SUFFICIENCY VERY DECREASED; SPHEROCYTES 1+; TEAR DROP CELLS 1+
[2017-07-09 07:12] LABS: ALBUMIN 2.5 G/DL (3.2-4.8); ALKALINE PHOSPHATASE 309 IU/L (3-129); AST (GOT) 269 IU/L (2-34); CHLORIDE 94 MEQ/L (99-109); CREATININE 2.8 MG/DL (0.6-1.3); GFR ESTIMATE (CALCULATED) 32 mL/min/ (58.99-99999); GLUCOSE 96 mg/dL (70-99); POTASSIUM 5.6 MEQ/L (3.7-5.4); SODIUM 130 MEQ/L (136-147); TOTAL PROTEIN 4.6 G/DL (6.4-8.3); UREA NITROGEN (BUN) 51 mg/dL (9-23)
[2017-07-09 07:21] LABS: TOTAL BILIRUBIN 3.5 MG/DL (0.0-1.0)
[2017-07-09 07:22] LABS: HEMATOCRIT 20.7 % (38.0-50.0); HEMOGLOBIN 7.9 G/DL (12.5-16.6); MCHC 38.2 G/DL (30.0-36.0); MCV 91.6 FL (86-99); NRBC (%) 5.5 /100 WBC (0-0); RBC DIS.WIDTH-CV 17.2 % (11.8-14.6); RBC DIS.WIDTH-SD 57.3 % (39-53); RED BLOOD COUNT 2.26 M/uL (4.00-5.50)
[2017-07-09 07:33] LABS: ALT (GPT) 128 IU/L (3-49)
[2017-07-09 07:47] LABS: ABS NEUTROPHIL COUNT 4.8; ANISOCYTOSIS 2+; EOSINOPHIL ABS CT 0.1; HYPOCHROMASIA 1+; IMM.PLATELET FRACTION 3.4 (1-7); MICROCYTOSIS 1+; PLAT.SUFFICIENCY VERY DECREASED; POIKILOCYTOSIS 1+; TARGET CELLS 1+; TEAR DROP CELLS 2+
[2017-07-09 07:49] LABS: LACTATE DEHYDROGENASE 3848 IU/L (20-246); PHOSPHORUS 5.2 mg/dL (2.5-4.9)
[2017-07-09 07:51] LABS: URIC ACID 5.5 mg/dL (3.1-9.2)
[2017-07-09 07:52] LABS: PLATELET COUNT 20 K/uL (156-360)
[2017-07-09 10:23] LABS: VANCOMYCIN, TROUGH 24.1 MCG/ML (10-20)
[2017-07-09 12:59] LABS: HEMATOCRIT 19.4 % (38.0-50.0); HEMOGLOBIN 7.5 G/DL (12.5-16.6); MCH 35.7 PG (29.0-34.0); MCHC 38.7 G/DL (30.0-36.0); MCV 92.4 FL (86-99); NRBC (%) 5.5 /100 WBC (0-0); RBC DIS.WIDTH-CV 17.1 % (11.8-14.6); RBC DIS.WIDTH-SD 58.4 % (39-53); WHITE BLOOD COUNT 5.3 K/uL (4.1-10.2)
[2017-07-09 13:24] LABS: PHOSPHORUS 7.1 mg/dL (2.5-4.9); URIC ACID 6.1 mg/dL (3.1-9.2)
[2017-07-09 13:26] LABS: ALBUMIN 2.4 G/DL (3.2-4.8); ALKALINE PHOSPHATASE 291 IU/L (3-129); ALT (GPT) 161 IU/L (3-49); AST (GOT) 286 IU/L (2-34); CHLORIDE 91 MEQ/L (99-109); CREATININE 3.2 MG/DL (0.6-1.3); GFR ESTIMATE (CALCULATED) 27 mL/min/ (58.99-99999); GLUCOSE 88 mg/dL (70-99); POTASSIUM 5.9 MEQ/L (3.7-5.4); SODIUM 127 MEQ/L (136-147); TOTAL BILIRUBIN 4.2 MG/DL (0.0-1.0); TOTAL PROTEIN 4.3 G/DL (6.4-8.3); UREA NITROGEN (BUN) 59 mg/dL (9-23)
[2017-07-09 13:31] LABS: ABS NEUTROPHIL COUNT 3.8; ANISOCYTOSIS 3+; BAND NEUTROPHILS 14.7 % (0-8.0); BASOPH.STIPPLING 1+; EOSINOPHIL ABS CT 0.1; HYPOCHROMASIA 1+; IMM.PLATELET FRACTION 3.9 (1-7); LYMPHOCYTES 17.6 % (15.0-45.0); METAMYELOCYTES 5.9 %; MICROCYTOSIS 1+; MYELOCYTES 1.9 %; NUCLEATED RBC'S 9.8; PLAT.SUFFICIENCY VERY DECREASED; POIKILOCYTOSIS 1+; POLYCHROMASIA 1+; SEG.NEUTROPHILS 57.9 % (46.0-76.0); SMUDGE CELLS 43.1; TARGET CELLS 1+; TEAR DROP CELLS 2+
[2017-07-09 13:37] LABS: GLUC.6-PHOS.DEHYDROG+ 12.3 U/g Hgb (7.0-20.5)
[2017-07-09 13:48] LABS: PLATELET COUNT 22 K/uL (156-360)
== END 2017-07-09 18:06 | disposition short-term general hospital (02) | DRG 823 ==
LOC: EME 15:05 → 2EAST 21:49 → EDOF 21:49 → ENRESERV 21:50 → EDOF 06-23 03:04 → ENRESERV 06-23 03:09 → 2EASTP 06-23 05:35 → ENRESERV 06-23 11:18 → 2EAST 06-23 11:20 → ENRESERV 07-05 08:55 → 4EAST 07-05 12:39 → ENPENDDIS 07-06 → ENRESERV 07-07 11:58 → 4WEST 07-07 11:58
PROVIDERS: Emergency Medicine; Hospitalist; Internal Medicine; Internal Medicine Hematology & Oncology; Internal Medicine Infectious Disease; Internal Medicine Nephrology; Ophthalmology; Physician Assistant; Physician Assistant Medical; Student in an Organized Health Care Education/Training Program; Thoracic Surgery (Cardiothoracic Vascular Surgery)
PROC: 30233R1 Transfusion of Nonautologous Platelets into Peripheral Vein, Percutaneous Approach (ICD-10-PCS; principal; 2017-06-23)
PROC: 0J9D3ZX Drainage of Right Upper Arm Subcutaneous Tissue and Fascia, Percutaneous Approach, Diagnostic (ICD-10-PCS; principal; 2017-06-23)
PROC: 07BH0ZX Excision of Right Inguinal Lymphatic, Open Approach, Diagnostic (ICD-10-PCS; 2017-06-30)
PROC: 07DR3ZX Extraction of Iliac Bone Marrow, Percutaneous Approach, Diagnostic (ICD-10-PCS; 2017-07-01)
PROC: 5A1945Z Respiratory Ventilation, 24-96 Consecutive Hours (ICD-10-PCS; 2017-07-07)
PROC: 5A1D70Z Performance of Urinary Filtration, Intermittent, Less than 6 Hours Per Day (ICD-10-PCS; 2017-07-07)
PROC: 06HN33Z Insertion of Infusion Device into Left Femoral Vein, Percutaneous Approach (ICD-10-PCS; 2017-07-07)
PROC: 0BH18EZ Insertion of Endotracheal Airway into Trachea, Via Natural or Artificial Opening Endoscopic (ICD-10-PCS; 2017-07-07)
PROC: 02HV33Z Insertion of Infusion Device into Superior Vena Cava, Percutaneous Approach (ICD-10-PCS; 2017-07-07)
PROC: 0B9D8ZX Drainage of Right Middle Lung Lobe, Via Natural or Artificial Opening Endoscopic, Diagnostic (ICD-10-PCS; 2017-07-08)
PROC: 30233N1 Transfusion of Nonautologous Red Blood Cells into Peripheral Vein, Percutaneous Approach (ICD-10-PCS; 2017-07-08)
DX: C85.15 Unspecified B-cell lymphoma, lymph nodes of inguinal region and lower limb (principal); J18.9 Pneumonia, unspecified organism; J96.01 Acute respiratory failure with hypoxia; D69.3 Immune thrombocytopenic purpura; E87.4 Mixed disorder of acid-base balance; N17.9 Acute kidney failure, unspecified; M25.511 Pain in right shoulder; M54.6 Pain in thoracic spine; I10 Essential (primary) hypertension; H00.019 Hordeolum externum unspecified eye, unspecified eyelid; M79.81 Nontraumatic hematoma of soft tissue; E87.6 Hypokalemia; E87.5 Hyperkalemia; E83.51 Hypocalcemia; H49.21 Sixth [abducent] nerve palsy, right eye; Z21 Asymptomatic human immunodeficiency virus [HIV] infection status; F12.90 Cannabis use, unspecified, uncomplicated; F17.210 Nicotine dependence, cigarettes, uncomplicated; Z91.14 Patient's other noncompliance with medication regimen; K59.00 Constipation, unspecified
CPT/HCPCS: 10030; 36415; 36600; 70450; 70553; 71045; 71275; 74176; 74177; 74183; 76705; 76770; 76882; 77012; 80048; 80048 91; 80053; 80069; 80074; 80076; 80202; 81003; 82248; 82436; 82550; 82570; 82607; 82746; 82803; 82948; 82955 90; 82977; 83010 90; 83605; 83615; 83615 90; 83625 90; 83880; 84100; 84133; 84145 90; 84156; 84300; 84484; 84550; 85007; 85025; 85025 91; 85027; 85049; 85060; 85378; 85384; 85610; 85730; 85999; 86140; 86141; 86160; 86355 90; 86359 90; 86360 90; 86704; 86706; 86780; 86803; 86850; 86900; 86901; 86920; 87040; 87070; 87075; 87102; 87106; 87116; 87205; 87206; 87252 90; 87340; 87385 90; 87536; 87641; 87899; 88305; 89190; 93005; 94002; 94003; 94010; 94640; 94640 76; 94760; 94799; 99202; 99281; 99285; C1751; C1788; C9113; J0133; J0690; J0692; J0696; J1170; J1200; J1450; J1566; J1644; J2248; J2250; J2270; J2405; J2543; J2704; J2765; J2783; J2920; J2930; J3010; J3370; J3411; J7030; J7040; J7042; J7050; J7060; J7070; J7120; P9016; P9035; P9037; S0039